=== PATIENT | male | born 1950 | race Caucasian/White ===

== ENCOUNTER 2018-01-27 07:50 | Emergency (ER) | payer OTHER ==
[~2018-01-27] VITALS: Ht 172.7 cm; Wt 83.0 kg
[2018-01-27] MEDS ORDERED: AUD NEB (07:59)
[2018-01-27] MEDS ORDERED: ISOS30TA6 PO (07:59)
[2018-01-27] MEDS ORDERED: DABI75CA3 PO (07:59)
[2018-01-27] MEDS ORDERED: MECL12.585 PO (07:59)
[2018-01-27] MEDS ORDERED: ALBUTEROL SULFATE 5 MG/ML 20 ML NEB SOLN [BULK] NEB ONE (08:00)
[2018-01-27] MEDS ORDERED: IPRATROPIUM BROMIDE 0.5 MG/2.5 ML NEB SOLUTION NEB ONE (08:00)
[2018-01-27] MEDS ORDERED: MethylPREDNISolone SOD SUCC 125 MG/2 ML VIAL IVP ONE (08:00)
[2018-01-27 08:37] LABS: ABG A-A DIFF O2 142.6 mmHg (10-20.0); ABG BASE EXCESS -2.5 mmol/L (-2.0-3.0); ABG CARBOXYHEMOGLOBIN 1.1 % (0.0-1.5); ABG HCO3 22.5 mmol/L (22.0-26.0); ABG METHEMOGLOBIN 0.5 % (0.0-1.5); ABG OXYGEN CONTENT 20.4 mL/dL (15.0-23.0); ABG OXYGEN SATURATION 99.6 % (95.0-98.0); ABG PCO2 43 mmHg (35-45); ABG PH 7.352 (7.35-7.450); ABG TOTAL HEMOGLOBIN 14.4 G/dL (12.0-18.0); PO2, ARTERIAL BG 238.5 mmHg (79.0-87.0); SITE, BLOOD GAS RT RADIAL; SOURCE, BLOOD GAS ARTERIAL; TEMPERATURE, FAHRENHEIT, BG 98.6 FAHREN (96.0-98.6)
[2018-01-27 08:38] LABS: CPAP, BG 0 cm H2O; O2 DEVICE,BLOOD GAS BIPAP (ROOM AIR); PRESSURE SUPPORT, BG 10 cm H2O; SPONTANEOUS VT, BG 485 ml
[2018-01-27 08:41] LABS: HEMATOCRIT 43.3 % (41-53); HEMOGLOBIN 14.8 g/dL (13.5-17.5); LYMPHOCYTES # (AUTO) 1.6 K/uL (1.0-4.8); LYMPHOCYTES % (AUTO) 19.4 % (22.0-44.0); MEAN CORPUSCULAR HEMOGLOBIN 31.3 pg (26.0-34.0); MEAN CORPUSCULAR HGB CONC 34.3 G/dL (31.0-37.0); MEAN CORPUSCULAR VOLUME 91 fL (80-100); MONOCYTES # (AUTO) 0.4 K/uL (0.1-1.0); MONOCYTES % (AUTO) 4.7 % (2.0-9.0); NEUTROPHILS # (AUTO) 4.1 K/uL (1.8-7.7); NEUTROPHILS % (AUTO) 49.4 % (40.0-70.0); PLATELET COUNT (AUTO) 164 K/uL (150-450); RED BLOOD CELL COUNT(AUTO) 4.74 MIL/uL (4.50-5.90); RED CELL DISTRIBUTION WIDTH 13.4 % (11.5-14.5)
[2018-01-27 08:43] LABS: EOSINOPHILS % (AUTO) 25.5 % (1.0-6.0)
[2018-01-27 08:46] LABS: ANION GAP 5 mmol/L (8-16); CARBON DIOXIDE 29 mmol/L (22-29); CHLORIDE 105 mmol/L (98-107); CREATININE 1.04 mg/dL (0.60-1.30); GLOMERULAR FILTR. RATE CALC > 60 mL/min (>60); GLUCOSE,RANDOM 140 mg/dL (70-110); POTASSIUM 3.8 mmol/L (3.5-5.1); SODIUM SERUM 139 mmol/L (136-145); UREA NITROGEN, BLOOD 9 mg/dL (7-18)
[2018-01-27 08:50] LABS: INR 1.2 (0.9-1.1); PROTHROMBIN TIME 12.5 SEC (9.4-11.6)
[2018-01-27 09:01] LABS: ALANINE AMINOTRANSFERASE 20 U/L (12-78); ALBUMIN 3.3 g/dL (3.4-5.0); ALKALINE PHOSPHATASE 111 U/L (46-116); ASPARTATE AMINOTRANSFERASE 15 U/L (15-37); B-TYPE NATRIURETIC PEPTIDE 389 pg/mL (0-100); BILIRUBIN,TOTAL 0.2 mg/dL (0.1-1.0); TOTAL PROTEIN, SERUM 6.8 g/dL (6.4-8.2)
[2018-01-27] MEDS ORDERED: 0.9% SODIUM CHLORIDE 5 ML NEB SOLUTION NEB ONE (09:45)
[2018-01-27 11:19] VITALS: BP 133/67
== END 2018-01-27 11:43 | disposition short-term general hospital (02) ==
LOC: EMS 07:51
DX: J96.00 Acute respiratory failure, unspecified whether with hypoxia or hypercapnia (principal); J44.1 Chronic obstructive pulmonary disease with (acute) exacerbation; F17.210 Nicotine dependence, cigarettes, uncomplicated; Z79.01 Long term (current) use of anticoagulants; Z79.899 Other long term (current) drug therapy
CPT/HCPCS: 36415; 71045; 80053; 82805; 83880; 84484; 85025; 85610; 85730; 87040; 93005; 94644; 94660; 96374; 99291; J2930

== ENCOUNTER 2018-03-24 19:01 | Emergency (ER) | payer OTHER ==
[~2018-03-24] VITALS: Ht 180.3 cm; Wt 90.8 kg
[~2018-03-24 19:01] MED LIST: ALBU8HFA IH; AUD NEB; DABI75CA3 PO; ISOS30TA6 PO; LORA0.5T2 PO; LOSA25TA21 PO; MECL12.585 PO
[2018-03-24] MEDS ORDERED: 0.9% SODIUM CHLORIDE 5 ML NEB SOLUTION NEB ONE (19:08)
[2018-03-24] MEDS ORDERED: MethylPREDNISolone SOD SUCC 125 MG/2 ML VIAL IVP ONE (19:15)
[2018-03-24] MEDS ORDERED: ALBUTEROL SULFATE 5 MG/ML 20 ML NEB SOLN [BULK] NEB ONE (19:15)
[2018-03-24] MEDS ORDERED: IPRATROPIUM BROMIDE 0.5 MG/2.5 ML NEB SOLUTION NEB ONE (19:15)
[2018-03-24 19:22] LABS: ABG A-A DIFF O2 71.6 mmHg (10-20.0); ABG CARBOXYHEMOGLOBIN 0.9 % (0.0-1.5); ABG METHEMOGLOBIN 0.5 % (0.0-1.5); ABG OXYGEN CONTENT 21.8 mL/dL (15.0-23.0); ABG OXYGEN SATURATION 99.4 % (95.0-98.0); ABG PCO2 52 mmHg (35-45); ABG PH 7.251 (7.35-7.450); ABG TOTAL HEMOGLOBIN 15.5 G/dL (12.0-18.0); O2 DEVICE,BLOOD GAS BIPAP (ROOM AIR); PO2, ARTERIAL BG 226.9 mmHg (79.0-87.0); SITE, BLOOD GAS RT RADIAL; SOURCE, BLOOD GAS ARTERIAL; TEMPERATURE, FAHRENHEIT, BG 98.6 FAHREN (96.0-98.6)
[2018-03-24 19:29] LABS: BASOPHILS % (AUTO) 1.1 % (0.0-2.0); HEMATOCRIT 45.3 % (41-53); LYMPHOCYTES # (AUTO) 2.4 K/uL (1.0-4.8); LYMPHOCYTES % (AUTO) 27.9 % (22.0-44.0); MEAN CORPUSCULAR HGB CONC 33.1 G/dL (31.0-37.0); MEAN CORPUSCULAR VOLUME 91 fL (80-100); MONOCYTES # (AUTO) 0.8 K/uL (0.1-1.0); MONOCYTES % (AUTO) 9.1 % (2.0-9.0); NEUTROPHILS % (AUTO) 56.9 % (40.0-70.0); PLATELET COUNT (AUTO) 212 K/uL (150-450); RED BLOOD CELL COUNT(AUTO) 4.99 MIL/uL (4.50-5.90); RED CELL DISTRIBUTION WIDTH 13.7 % (11.5-14.5)
[2018-03-24] MEDS ORDERED: SODIUM CHLORIDE 0.9% 1,000 ML IV ONE (19:30)
[2018-03-24] MEDS ORDERED: ACETAMINOPHEN 500 MG TABLET PO ONE (19:30)
[2018-03-24 19:51] LABS: ANION GAP 10 mmol/L (8-16); CALCIUM, TOTAL 8.6 mg/dL (8.8-10.5); CARBON DIOXIDE 26 mmol/L (22-29); CHLORIDE 101 mmol/L (98-107); CREATININE 1.16 mg/dL (0.60-1.30); GLOMERULAR FILTR. RATE CALC > 60 mL/min (>60); GLUCOSE,RANDOM 227 mg/dL (70-110); SODIUM SERUM 137 mmol/L (136-145); UREA NITROGEN, BLOOD 11 mg/dL (7-18)
[2018-03-24 19:52] LABS: B-TYPE NATRIURETIC PEPTIDE 286 pg/mL (0-100)
[2018-03-24 19:56] LABS: ALANINE AMINOTRANSFERASE 21 U/L (12-78); ALBUMIN 3.3 g/dL (3.4-5.0); ALKALINE PHOSPHATASE 115 U/L (46-116); ASPARTATE AMINOTRANSFERASE 20 U/L (15-37); BILIRUBIN,TOTAL 0.3 mg/dL (0.1-1.0); CREATINE KINASE, TOTAL 74 U/L (39-308); TOTAL PROTEIN, SERUM 6.9 g/dL (6.4-8.2)
[2018-03-24 20:30] LABS: ABG BASE EXCESS -2.7 mmol/L (-2.0-3.0); ABG CARBOXYHEMOGLOBIN 1.2 % (0.0-1.5); ABG HCO3 22.3 mmol/L (22.0-26.0); ABG METHEMOGLOBIN 0.5 % (0.0-1.5); ABG OXYGEN CONTENT 19.4 mL/dL (15.0-23.0); ABG OXYGEN SATURATION 97.7 % (95.0-98.0); ABG PCO2 43 mmHg (35-45); ABG PH 7.349 (7.35-7.450); ABG TOTAL HEMOGLOBIN 14.3 G/dL (12.0-18.0); SITE, BLOOD GAS RT RADIAL; SOURCE, BLOOD GAS ARTERIAL; TEMPERATURE, FAHRENHEIT, BG 98.6 FAHREN (96.0-98.6)
[2018-03-24 20:31] LABS: O2 DEVICE,BLOOD GAS BIPAP (ROOM AIR)
[2018-03-24 21:32] VITALS: BP 112/76
== END 2018-03-24 23:54 | disposition short-term general hospital (02) ==
LOC: EMS 19:02
DX: J44.9 Chronic obstructive pulmonary disease, unspecified (principal); I50.9 Heart failure, unspecified; Z87.891 Personal history of nicotine dependence
CPT/HCPCS: 36415; 71045; 80053; 82550; 82805; 83605; 83880; 84484; 85025; 87040; 93005; 94644; 94660; 96374; 99291; J2930; J7030